=== PATIENT | male | born 1965 | race Two or more races ===

== ENCOUNTER 2020-12-29 10:15 | Emergency (ER) | payer OTHER ==
[~2020-12-29] VITALS: Ht 177.8 cm; Wt 87.6 kg
[2020-12-29 10:18] VITALS: BP 150/94
--- NOTE | 2020-12-29 10:21 | NUR ---
RN NURSERY: PT PLACED IN C-COLLAR AND TAKEN TO ROOM 9 IN .
[2020-12-29] MEDS ORDERED: CYCLOBENZAPRINE 10 MG TABLET PO ONE (11:00)
[2020-12-29] MEDS ORDERED: ACETAMINOPHEN 500 MG TABLET PO ONE (11:00)
[2020-12-29] MEDS ORDERED: CYCLOBENZAPRINE 10 MG TABLET ONE (11:11)
[2020-12-29] MEDS ORDERED: ACETAMINOPHEN 500 MG TABLET ONE (11:11)
== END 2020-12-29 12:23 | disposition home or self-care (01) ==
LOC: ED 12:17
DX: S16.1XXA Strain of muscle, fascia and tendon at neck level, initial encounter (principal); S39.012A Strain of muscle, fascia and tendon of lower back, initial encounter; Z88.6 Allergy status to analgesic agent; F17.200 Nicotine dependence, unspecified, uncomplicated; V49.49XA Driver injured in collision with other motor vehicles in traffic accident, initial encounter; Y93.89 Activity, other specified; Y92.89 Other specified places as the place of occurrence of the external cause; Y99.8 Other external cause status
CPT/HCPCS: 72125; 72131; 99285